=== PATIENT | male | born 1985 | race African-American/Black ===

== ENCOUNTER 2017-03-30 13:02 | Emergency (ER) | payer OTHER ==
[~2017-03-30] VITALS: Ht 190.5 cm; Wt 104.7 kg
[~2017-03-30 13:02] MED LIST: EPP3/2 INJ; FLNIN/ NAE
[2017-03-30 13:07] VITALS: TEMP 36.6; Ht 190.5 cm; Wt 104.7 kg
[2017-03-30] MEDS ORDERED: SODIUM CHLORIDE 0.9% 1000ML 1,000 ML IV STA (13:17)
[2017-03-30] MEDS ORDERED: ONDANSETRON INJ 2 MG/ML 2 ML VIAL IV STA (13:17)
[2017-03-30] MEDS ORDERED: GI COCKTAIL PO STA (13:17)
[2017-03-30] MEDS ORDERED: ALUMINUM/MAGNESIUM SUSP 30 ML UDC ONE (13:29)
[2017-03-30] MEDS ORDERED: LIDOCAINE HCL 2% VISC SOLN 20 ML UDC ONE (13:29)
[2017-03-30 13:33] LABS: BASO % 0.4 %; BASO ABS # 0.02 K/uL (0-0.2); COMPLETE YES; EOS % 2.1 %; HEMATOCRIT 44.3 % (42-52); IG% 0.4 %; LYMPH % 33.3 %; LYMPH ABS # 1.87 K/uL (1.2-3.4); MEAN CELL VOLUME 89.5 fL (80-100); MEAN CORPUSCULAR HEMOGLOBIN 30.5 pg (25-34); MEAN CORPUSCULAR HGB CONC 34.1 g/dl (32-36); MEAN PLATELET VOLUME 9.4 fL (7.4-10.4); MONO % 8.4 %; NEUT % 55.4 %; PLATELET COUNT 203 K/uL (130-400); RED BLOOD COUNT 4.95 M/uL (4.7-6.1); WHITE BLOOD COUNT 5.62 K/uL (4.8-10.8)
--- NOTE | 2017-03-30 13:38 | EMERGENCY ROOM VISIT NOTE ---
History Report prepared by Jimy: Benja Pryor Under the Supervision of: Dr. Blake Gray M.D. First contact with patient: 13:11 Chief Complaint: CARDIAC ASSESSMENT Stated Complaint: SURGERY SITE HURTS/VOMITING, CHEST PAIN Nursing Triage Summary: triage note; pt reports "i am just not feeling well i had a mass removed from my right left groin last week." pt reports since last night "i started throwing up." pt reports dizziness since this am and "it feels like my chest is on fire." History of Present Illness The patient is a 31 year old male who presents to the Emergency Room with complaints of worsening groin pain for the past week. Additionally, the patient states that he has been vomiting since last night, and she states that he is having some burning central chest pain. He states that he recently had surgery on his groin to remove a mass. The patient denies any diarrhea, and he states that he had a bowel movement yesterday. Source of History: patient Onset: a week ago Position: other (groin) Timing: worsening Associated Symptoms: + chest pain, + vomiting, No diarrhea Review of Systems See HPI for pertinent positives & negatives. A total of 10 systems reviewed and were otherwise negative. Past Medical & Surgical Medical Problems: (1) Tonsillitis Surgical Problems: (1) H/O shoulder surgery Family History Diabetes mellitus Hypertension Social History Smoking Status: Former Smoker Alcohol Use: occasionally Occupation Status: employed Current/Historical Medications Scheduled Epinephrine (Epipen 2-Dada), 1 DOSE INJ prn ud Multivitamin (Multivitamin), 1 TAB PO DAILY Omeprazole (Omeprazole), 1 TAB PO DAILY Ondasetron Odt (Zofran Odt), 4 MG SL Q6H Allergies Coded Allergies: BEE STING (Verified Allergy, Severe, ANAPHYLAXIS, 03/30/17) Physical Exam Vital Signs Date Time Temp Pulse Resp B/P (MAP) Pulse Ox O2 Delivery O2 Flow Rate FiO2 03/30/17 14:20 57 16 121/85 99 03/30/17 13:07 36.6 86 18 151/92 96 Room Air Physical Exam GENERAL: Patient is dehydrated appearing and in minimal distress. HEENT: No acute trauma, normocephalic atraumatic, mucous membranes dry, no nasal congestion, no scleral icterus. NECK: No stridor, no adenopathy, no meningismus, trachea is midline. LUNGS: No dyspnea. Clear to auscultation and equal bilaterally. No wheeze, no rhonchi. HEART: Regular rate and rhythm. No murmurs, rubs, gallops appreciated. ABDOMEN: Soft, nontender, bowel sounds positive, no masses appreciated, no peritonitis. BACK: No midline tenderness, no CVA tenderness EXTREMITIES: Normal motion all extremities, no cyanosis, no edema. NEUROLOGIC: Alert and oriented, no acute motor or sensory deficits, no focal weakness, cranial nerves grossly intact. SKIN: Well-healing left inguinal incision. No rash, no jaundice, no diaphoresis. Medical Decision & Procedures ER Provider Diagnostic Interpretation: Radiology results and stated below per my review and radiologist interpretation : ABDOMEN 2VIEW W/PA CHEST RTN HISTORY: 31 years-old Male vomiting, s/p left groin surgery COMPARISON: Abdominal ultrasound 06/22/2008 TECHNIQUE: Frontal view of the chest with erect and supine views of the abdomen FINDINGS: Cardiac mediastinal and hilar silhouettes are within normal limits. Surgical anchors are present within the left humeral head and glenoid. No pneumothorax, pleural effusion, focal airspace consolidation or overt pulmonary edema. Mild subcortical cystic changes are seen within the distal right clavicle. No pneumoperitoneum on the upright projection. Pattern is nonobstructive. No urolith identified. There is mild intervertebral disc space narrowing at L4-L5. Probable phlebolith involves the left hemipelvis. IMPRESSION: 1. No acute cardiopulmonary process. 2. Nonobstructive bowel gas pattern without pneumoperitoneum. The above report was generated using voice recognition software. It may contain grammatical, syntax or spelling errors. Electronically signed by: Venkat Osborn M.D. 03/30/2017 2:02 PM Dictated Date/Time: 03/30/2017 1:59 PM Laboratory Results 03/30/17 13:23 Red Blood Count 4.95, Mean Corpuscular Volume 89.5, Mean Corpuscular Hemoglobin 30.5, Mean Corpuscular Hemoglobin Concent 34.1, Mean Platelet Volume 9.4, Neutrophils (%) (Auto) 55.4, Lymphocytes (%) (Auto) 33.3, Monocytes (%) (Auto) 8.4, Eosinophils (%) (Auto) 2.1, Basophils (%) (Auto) 0.4, Neutrophils # (Auto) 3.12, Lymphocytes # (Auto) 1.87, Monocytes # (Auto) 0.47, Eosinophils # (Auto) 0.12, Basophils # (Auto) 0.02 03/30/17 13:23 Test 03/30/17 13:23 White Blood Count 5.62 K/uL (4.8-10.8) Red Blood Count 4.95 M/uL (4.7-6.1) Hemoglobin 15.1 g/dL (14.0-18.0) Hematocrit 44.3 % (42-52) Mean Corpuscular Volume 89.5 fL (80-100) Mean Corpuscular Hemoglobin 30.5 pg (25-34) Mean Corpuscular Hemoglobin Concent 34.1 g/dl (32-36) Platelet Count 203 K/uL (130-400) Mean Platelet Volume 9.4 fL (7.4-10.4) Neutrophils (%) (Auto) 55.4 % Lymphocytes (%) (Auto) 33.3 % Monocytes (%) (Auto) 8.4 % Eosinophils (%) (Auto) 2.1 % Basophils (%) (Auto) 0.4 % Neutrophils # (Auto) 3.12 K/uL (1.4-6.5) Lymphocytes # (Auto) 1.87 K/uL (1.2-3.4) Monocytes # (Auto) 0.47 K/uL (0.11-0.59) Eosinophils # (Auto) 0.12 K/uL (0-0.5) Basophils # (Auto) 0.02 K/uL (0-0.2) RDW Standard Deviation 45.7 fL (36.4-46.3) RDW Coefficient of Variation 14.0 % (11.5-14.5) Immature Granulocyte % (Auto) 0.4 % Immature Granulocyte # (Auto) 0.02 K/uL (0.00-0.02) Anion Gap 6.0 mmol/L (3-11) Est Creatinine Clear Calc Drug Dose 127.4 ml/min Estimated GFR () 103.1 Estimated GFR (Non- 89.0 BUN/Creatinine Ratio 16.7 (10-20) Calcium Level 9.1 mg/dl (8.5-10.1) Total Bilirubin 0.6 mg/dl (0.2-1) Direct Bilirubin 0.1 mg/dl (0-0.2) Aspartate Amino Transf (AST/SGOT) 20 U/L (15-37) Alanine Aminotransferase (ALT/SGPT) 48 U/L (12-78) Alkaline Phosphatase 70 U/L (45-117) Troponin I < 0.015 ng/ml (0-0.045) Total Protein 7.8 gm/dl (6.4-8.2) Albumin 3.7 gm/dl (3.4-5.0) Lipase 139 U/L (73-393) Laboratory results as reviewed by me. Medications Administered Medications (Trade) Dose Ordered Sig/Cheryl Route Start Time Stop Time Status Last Admin Dose Admin Sodium Chloride 1,000 ml @ 999 mls/hr Q1H1M STAT IV 03/30/17 13:17 03/30/17 14:17 DC 03/30/17 13:33 999 MLS/HR Ondansetron HCl (Zofran Inj) 4 mg NOW STAT IV 03/30/17 13:17 03/30/17 13:19 DC 03/30/17 13:33 4 MG Lidocaine HCl (Viscous Lidocaine 2% Soln) 20 ml STK-MED ONCE .ROUTE 03/30/17 13:29 03/30/17 13:30 DC 03/30/17 13:34 10 ML Al Hydroxide/Mg Hydroxide (Maalox Susp) 30 ml STK-MED ONCE .ROUTE 03/30/17 13:29 03/30/17 13:30 DC 03/30/17 13:34 30 ML ECG Indication: vomiting Rate (beats per minute): 62 Rhythm: normal sinus Findings: no acute ischemic change, no ectopy ED Course 1311: The patient was evaluated in room C4. A complete history and physical exam was performed. 1317: Zofran Inj 4mg IV, Sodium Chloride 1000 ml @ 999 mls/hr IV 1329: Maalox Sups 30ml, Viscous Lidocaine 2% Soln 10ml PO 1414: Reevaluated the patient, and he was feeling better. Discussed results and discharge instructions: He verbalized understanding and agreement. The patient is ready for discharge. Medical Decision Differential: Gastroenteritis, Food Borne, Esophageal Perforation, , Electrolyte Abnormality, Dehydration, Intraabdominal Infection, UTI/ Pyelonephritis, Bowel Obstruction, Biliary Pathology, amongst other pathology entertained. 31 yr old male with substernal CP s/p vomiting. Recent left inguinal surgery which site looks good. Exam and xrays not consistent with obstruction. No evidence ACS/Pericarditis. CXR clear. Looks well and feeling much improved. Labs look good without evidence infection. Suspect was related to vomiting though no evidence of esophageal perforation thus likely esophagitis. Stressed rest and symptomatic tx. Reviewed symptoms requiring RTED. Medication Reconcilliation Current Medication List: was personally reviewed by me Blood Pressure Screening Patient's blood pressure: Elevated blood pressure Blood pressure disposition: Elevated BP felt to be situational Impression Primary Impression: Dehydration Additional Impressions: Vomiting Substernal chest pain Scribe Attestation The scribe's documentation has been prepared under my direction and personally reviewed by me in its entirety. I confirm that the note above accurately reflects all work, treatment, procedures, and medical decision making performed by me. Departure Information Dispostion Home / Self-Care Prescriptions Omeprazole (OMEPRAZOLE) 20 Mg Tab 1 TAB PO DAILY for 30 Days, #30 TAB 3 Refills Prov: Blake Gray M.D. 03/30/17 Ondasetron Odt (ZOFRAN ODT) 4 Mg Tab 4 MG SL Q6H for Nausea, #20 TAB Prov: Blake Gray M.D. 03/30/17 Referrals Royce Culp MD (PCP) Forms IMPORTANT VISIT INFORMATION, Work Instructions Patient Instructions ED Nausea Vomiting, My [facility] Health Problem Qualifiers
[2017-03-30 13:46] LABS: ALT/SGPT 48 U/L (12-78); BLOOD UREA NITROGEN 18 mg/dl (7-18); BUN/CREATININE RATIO 16.7 (10-20); CALCIUM 9.1 mg/dl (8.5-10.1); CARBON DIOXIDE 27 mmol/L (21-32); CHLORIDE 106 mmol/L (98-107); GLUCOSE 88 mg/dl (70-99); POTASSIUM 3.8 mmol/L (3.5-5.1); SODIUM 139 mmol/L (136-145)
[2017-03-30 13:51] LABS: ALKALINE PHOSPHATASE 70 U/L (45-117); AST/SGOT 20 U/L (15-37)
[2017-03-30] MEDS ORDERED: MULT-506 PO (13:55)
--- NOTE | 2017-03-30 14:03 | DIAGNOSTIC IMAGING REPORT ---
ABDOMEN 2VIEW W/PA CHEST RTN HISTORY: 31 years-old Male vomiting, s/p left groin surgery COMPARISON: Abdominal ultrasound 06/22/2008 TECHNIQUE: Frontal view of the chest with erect and supine views of the abdomen FINDINGS: Cardiac mediastinal and hilar silhouettes are within normal limits. Surgical anchors are present within the left humeral head and glenoid. No pneumothorax, pleural effusion, focal airspace consolidation or overt pulmonary edema. Mild subcortical cystic changes are seen within the distal right clavicle. No pneumoperitoneum on the upright projection. Pattern is nonobstructive. No urolith identified. There is mild intervertebral disc space narrowing at L4-L5. Probable phlebolith involves the left hemipelvis. IMPRESSION: 1. No acute cardiopulmonary process. 2. Nonobstructive bowel gas pattern without pneumoperitoneum. The above report was generated using voice recognition software. It may contain grammatical, syntax or spelling errors. Electronically signed by: Venkat Osborn M.D. 03/30/2017 2:02 PM Dictated Date/Time: 03/30/2017 1:59 PM
[2017-03-30] MEDS ORDERED: ONDA4TAB10 SL (14:09)
[2017-03-30] MEDS ORDERED: OMEP20TA PO (14:09)
[2017-03-30 14:20] VITALS: BP 121/85; PULSE 57; O2SAT 99
== END 2017-03-30 14:21 | disposition home or self-care (01) ==
LOC: C.EDB 13:04 → C.EDC 14:21
DX: E86.0 Dehydration (principal); R11.10 Vomiting, unspecified; R07.2 Precordial pain; Z83.3 Family history of diabetes mellitus; Z82.49 Family history of ischemic heart disease and other diseases of the circulatory system; Z87.891 Personal history of nicotine dependence

== ENCOUNTER 2017-06-22 11:27 | Emergency (ER) | payer OTHER ==
[~2017-06-22] VITALS: Ht 190.5 cm; Wt 106.7 kg
[~2017-06-22 11:27] MED LIST changes: -FLNIN/ NAE; +MULT-506 PO; +OMEP20TA PO; +ONDA4TAB10 SL
[2017-06-22 11:36] VITALS: Ht 190.5 cm; Wt 106.7 kg
[2017-06-22] MEDS ORDERED: RANITIDINE HCL 150 MG TAB PO ONE (12:15)
[2017-06-22] MEDS ORDERED: PRED50TA PO (12:57)
[2017-06-22 13:06] VITALS: BP 123/80; PULSE 68; TEMP 37; O2SAT 99
--- NOTE | 2017-06-22 18:31 | EMERGENCY ROOM VISIT NOTE ---
History Report prepared by Cristopheribtara: Khari Merritt Under the Supervision of: Dr. Jesus Manuel Heath M.D. First contact with patient: 12:00 Chief Complaint: ALLERGIC REACTION Stated Complaint: BEE STING REACTION/SWOLLEN HAND, FACE History of Present Illness The patient is a 32 year old male who presents to the Emergency Room with complaints of a persistent generalized allergic reaction beginning yesterday. He has a known allergy to bees. The patient was stung by a bee yesterday on his left hand and used his EpiPen. He notes that he removed the stinger himself. He took Benadryl for his symptoms as well. The patient states that his symptoms improved significantly, but returned upon waking up today. He has not taken any additional Benadryl since. He currently complains of mild throat "tightness". Pt denies LOC, headache, fevers, chills, diaphoresis, visual changes, neck pain , chest pain, breathing difficulties, nausea, vomiting, abdominal pain, back pain, melena, hematochezia, urinary symptoms, numbness, weakness, lymphadenopathy, or other complaints. Source of History: patient Onset: Yesterday Position: other (generalized) Quality: other (allergic reaction) Timing: other (persistent) Modifying Factors (Relieving): other (Benadryl and EpiPen) Note: Additional symptoms: mild throat "tightness". Review of Systems See HPI for pertinent positives and negatives. A total of ten systems were reviewed and were otherwise negative. Past Medical & Surgical Medical Problems: (1) Tonsillitis Surgical Problems: (1) H/O shoulder surgery Family History Diabetes mellitus Hypertension Social History Smoking Status: Never Smoker Alcohol Use: occasionally Occupation Status: employed Current/Historical Medications Scheduled Epinephrine (Epipen 2-Dada), 1 DOSE INJ prn ud Multivitamin (Multivitamin), 1 TAB PO DAILY Prednisone (Prednisone), 50 MG PO DAILY Allergies Coded Allergies: BEE STING (Verified Allergy, Severe, ANAPHYLAXIS, 06/22/17) Physical Exam Vital Signs Date Time Temp Pulse Resp B/P (MAP) Pulse Ox O2 Delivery O2 Flow Rate FiO2 06/22/17 13:06 37.0 68 18 123/80 99 06/22/17 11:39 97 Room Air 06/22/17 11:36 37.1 71 18 123/80 97 Room Air Physical Exam GENERAL: Awake, alert, well-appearing, in no distress HENT: Normocephalic, atraumatic. Oropharynx unremarkable. EYES: Normal conjunctiva. Sclera non-icteric. NECK: Supple. No nuchal rigidity. FROM. No JVD. Airway is patent. No stridor. RESPIRATORY: Clear to auscultation. CARDIAC: Regular rate, normal rhythm. Extremities warm and well perfused. Pulses equal. ABDOMEN: Soft, non-distended. No tenderness to palpation. No rebound or guarding. No masses. RECTAL: Deferred. MUSCULOSKELETAL: Chest examination reveals no tenderness. The back is symmetrical on inspection without obvious abnormality. There is no CVA tenderness to palpation. No joint edema. LOWER EXTREMITIES: Calves are equal size bilaterally and non-tender. No edema. No discoloration. NEURO: Normal sensorium. No sensory or motor deficits noted. SKIN: Swelling to the palm of the left hand. Mild edema and erythema. No streaking up the arm. No foreign bodies seen. Minimal puffiness to the face. Medical Decision & Procedures Medications Administered Medications (Trade) Dose Ordered Sig/Cheryl Route Start Time Stop Time Status Last Admin Dose Admin Prednisone (PredniSONE TAB) 60 mg NOW STAT PO 06/22/17 12:05 06/22/17 12:07 DC 06/22/17 12:22 60 MG Ranitidine HCl (zANTac TAB) 150 mg NOW ONCE PO 06/22/17 12:15 06/22/17 12:16 DC 06/22/17 12:22 150 MG ED Course 1204: The patient was evaluated in room C3. A complete history and physical exam was performed. 1205: Ordered Prednisone Tab 60 mg PO. 1215: Ordered Benadryl Cap 50 mg PO, Zantac Tab 150 mg PO. 1255: I reevaluated the patient. Discussed results and discharge instructions: he verbalized understanding and agreement. The patient is ready for discharge. Medical Decision Triage Nursing notes reviewed and agree them. The patient's history was concerning for possible allergic reaction. Differential diagnosis: Etiologies such as allergic reaction, anaphylaxis, urticaria, Singleton-Bennie syndrome, toxic epidermal necrolysis, erythema multiforme, cellulitis, as well as others were entertained. Physical examination: As above. ER treatment provided: Zantac 150 mg PO Prednisone 60mg PO Benadryl was not given as the patient was planning to go back to work. On reassessment the patient felt better. Diagnostic interpretation by me: Deferred It appears the patient had an allergic reaction from a bee sting that he witnessed. He treated himself with epinephrine and Benadryl. He has some swelling but there is no sign of cellulitis. After the above treatment the patient was reassessed and was doing better. Conservative management was discussed. The patient feels comfortable. By the evaluation outlined above emergent etiologies such as airway compromise, Singleton-Bennie syndrome, toxic epidermal necrolysis, erythema multiforme, cellulitis, as well as others were deemed relatively unlikely. The patient was informed about the findings as listed above. All questions were answered and he was pleased with the treatment. Return instructions were outlined and the patient was discharged in stable condition. Outpatient prescription management: prednisone Referral: The patient was referred back to his primary care physician for follow-up in 2- 3 days for a recheck of the current condition. Medication Reconcilliation Current Medication List: was personally reviewed by me Blood Pressure Screening Patient's blood pressure: Normal blood pressure Blood pressure disposition: Did not require urgent referral Impression Primary Impression: Allergic reaction Scribe Attestation The scribe's documentation has been prepared under my direction and personally reviewed by me in its entirety. I confirm that the note above accurately reflects all work, treatment, procedures, and medical decision making performed by me. Departure Information Dispostion Home / Self-Care Prescriptions Prednisone (Prednisone) 50 Mg Tab 50 MG PO DAILY for 3 Days, #3 TAB Prov: Jesus Manuel Heath MD 06/22/17 Referrals Royce Culp MD (PCP) Forms HOME CARE DOCUMENTATION FORM, IMPORTANT VISIT INFORMATION Patient Instructions [facility] Additional Instructions ALLERGIC REACTION INSTRUCTIONS: DO NOT drive, drink alcohol, operate machinery, or perform dangerous activities today. You were given medications in the ER that can affect your ability to safely function or operate a vehicle. Epi-Pen: Use one injection as instructed for severe allergic reactions associated with shortness of breath, difficulty breathing, or throat or tongue swelling. If you use this injection call 911 or proceed immediately to the nearest Emergency Room. Prednisone 50mg: Once daily until the prescription is finished. It is best to take this earlier in the day as some patients note occasional difficulty falling asleep when taken in the late evening. Diphenhydramine(Benadryl) 25mg: use 25 to 50 mg every six hours for swelling, itching, or hives. This medication is sedating and will cause drowsiness. Avoid alcohol, operating machinery or dangerous equipment, working on ladders or roofs, DRIVING, or situations where being under the influence may be dangerous. Zantac 75: Take two pills twice a day along with Benadryl as needed for swelling , itching, or hives. Most people know this for its affect on the stomach, but it also acts similar to, but less potent than Benadryl for allergic reactions. Both the Benadryl and the Zantac are available [id number]. Continue current medications. Return to the emergency department for worsening of your rash, swelling of your face, lips, tongue, or throat, difficulty breathing, vomiting, or as needed. Follow-up with your primary care physician next week for a recheck of your current condition.
== END 2017-06-22 13:08 | disposition home or self-care (01) ==
LOC: C.EDB 11:29 → C.EDC 13:08
DX: T63.441A Toxic effect of venom of bees, accidental (unintentional), initial encounter (principal); S60.562A Insect bite (nonvenomous) of left hand, initial encounter; X58.XXXA Exposure to other specified factors, initial encounter; Z83.3 Family history of diabetes mellitus; Z82.49 Family history of ischemic heart disease and other diseases of the circulatory system

== ENCOUNTER 2017-06-27 14:21 | Emergency (ER) | payer OTHER ==
[~2017-06-27] VITALS: Ht 190.5 cm; Wt 106.8 kg
[~2017-06-27 14:21] MED LIST changes: -OMEP20TA PO; -ONDA4TAB10 SL
[2017-06-27 14:23] VITALS: TEMP 37; Ht 190.5 cm; Wt 106.8 kg
[2017-06-27] MEDS ORDERED: METHYLPREDNISOLONE 125 MG VIAL IV STA (14:54)
[2017-06-27] MEDS ORDERED: FAMOTIDINE 20MG/102 ML D5W IV STA (14:54)
--- NOTE | 2017-06-27 15:31 | DIAGNOSTIC IMAGING REPORT ---
CHEST ONE VIEW PORTABLE CLINICAL HISTORY: SOB COMPARISON STUDY: 03/30/2017 FINDINGS: The cardiac and mediastinal contours are normal. There is no evidence of focal pulmonary consolidation. There is no evidence of failure. No pleural effusions are visualized.[There are postsurgical changes in the left shoulder IMPRESSION: No active disease in the chest. Electronically signed by: Gwyn Dominguez M.D. 06/27/2017 3:30 PM Dictated Date/Time: 06/27/2017 3:29 PM
[2017-06-27 15:46] LABS: BASO % 0.2 %; BASO ABS # 0.01 K/uL (0-0.2); COMPLETE YES; EOS % 0.2 %; IG% 0.2 %; LYMPH % 19.6 %; LYMPH ABS # 0.98 K/uL (1.2-3.4); MEAN CELL VOLUME 89.1 fL (80-100); MEAN CORPUSCULAR HEMOGLOBIN 31.1 pg (25-34); MEAN CORPUSCULAR HGB CONC 34.9 g/dl (32-36); MEAN PLATELET VOLUME 9.7 fL (7.4-10.4); NEUT % 77.8 %; PLATELET COUNT 218 K/uL (130-400)
[2017-06-27] MEDS ORDERED: DIPH25CA65 PO (16:03)
[2017-06-27] MEDS ORDERED: RANI150T3 PO (16:03)
[2017-06-27 16:04] LABS: CALCIUM 8.8 mg/dl (8.5-10.1); CREATININE 0.91 mg/dl (0.60-1.40)
[2017-06-27] MEDS ORDERED: PRED20TA PO (16:05)
[2017-06-27 16:21] VITALS: BP 131/83; PULSE 61; O2SAT 99
--- NOTE | 2017-06-27 16:52 | EMERGENCY ROOM VISIT NOTE ---
History Report prepared by Scribtara: Khari Merritt Under the Supervision of: Dr. Kushal Jay D.O. First contact with patient: 14:47 Chief Complaint: ALLERGIC REACTION Stated Complaint: BEE STING-STILL HAVING A REACTION Nursing Triage Summary: Pt states he was stung be a bee last Sunday, used Epi-pen at that time, states face and left hand puffy on Sunday, came into ER then, was given a script on zantac, benadryl and prednisone. Took last prednisone 2 days ago. Today woke up with left hand red and swollen, feels itchy. History of Present Illness The patient is a 32 year old male who presents to the Emergency Room with complaints of a waxing and waning generalized allergic reaction beginning five days ago. He was stung by a bee on his left hand five days ago, and was seen in the ED four days ago for the reaction. The patient states that he has had persistent hives since this time. He also complains of throat "tightness" beginning yesterday. Pt denies headache, change in vision, fevers, chest pain, nausea, vomiting, diarrhea, and pain with urination. Source of History: patient Onset: Five days ago Position: other (generalized) Quality: other (allergic reaction) Timing: waxes/wanes Associated Symptoms: No fevers, No chest pain, No nausea, No vomiting, No abdominal pain, No diarrhea, No urinary symptoms Note: Additional symptoms: throat "tightness". Review of Systems See HPI for pertinent positives & negatives. A total of 10 systems reviewed and were otherwise negative. Past Medical & Surgical Medical Problems: (1) Tonsillitis Surgical Problems: (1) H/O shoulder surgery Family History Diabetes mellitus Hypertension Social History Smoking Status: Current Every Day Smoker Alcohol Use: occasionally Occupation Status: employed Current/Historical Medications Scheduled Diphenhydramine Hcl (Benadryl Allergy), 25 MG PO DAILY Epinephrine (Epipen 2-Dada), 1 DOSE INJ prn ud Multivitamin (Multivitamin), 1 TAB PO DAILY Prednisone (Prednisone), 1 TAB PO DAILY Ranitidine Hcl (Zantac), 150 MG PO BID Allergies Coded Allergies: BEE STING (Verified Allergy, Severe, ANAPHYLAXIS, 06/22/17) Physical Exam Vital Signs Date Time Temp Pulse Resp B/P (MAP) Pulse Ox O2 Delivery O2 Flow Rate FiO2 06/27/17 16:21 61 20 131/83 99 Room Air 06/27/17 15:27 71 18 131/83 98 Room Air 06/27/17 15:16 58 06/27/17 14:40 97 Room Air 06/27/17 14:23 37.0 79 18 171/94 97 Room Air Physical Exam GENERAL: Sitting up in bed, alert, well appearing, well nourished, no distress, non-toxic EYE EXAM: normal conjunctiva. OROPHARYNX: no exudate, no erythema, lips, buccal mucosa, and tongue normal and mucous membranes are moist NECK: supple, no nuchal rigidity, no adenopathy, non-tender. No stridor. LUNGS: Clear to auscultation. Normal chest wall mechanics HEART: no murmurs, S1 normal and S2 normal ABDOMEN: abdomen soft, non-tender, normo-active bowel sounds, no masses, no rebound or guarding. SKIN: no rashes and no bruising UPPER EXTREMITIES: Faint amount of erythema on the dorsal aspect of the MTP 2- 4. Site of sting appears to have mild erythema the hu aspect along the 2nd and 3rd MTP. Flexion and extension of shoulder, elbow, wrist and grass 5 out of 5 bilateral. Abduction of digits intact. LOWER EXTREMITIES: No pitting edema. NEURO EXAM: Normal sensorium, cranial nerves II-XII grossly intact, normal speech, no gross weakness of arms, no gross weakness of legs. Medical Decision & Procedures ER Provider Diagnostic Interpretation: Radiology results as stated below per my review and the radiologist's interpretation: CHEST ONE VIEW PORTABLE FINDINGS: The cardiac and mediastinal contours are normal. There is no evidence of focal pulmonary consolidation. There is no evidence of failure. No pleural effusions are visualized.[There are postsurgical changes in the left shoulder IMPRESSION: No active disease in the chest. Electronically signed by: Gwyn Dominguez M.D. 06/27/2017 3:30 PM Laboratory Results 06/27/17 15:30 Red Blood Count 4.60, Mean Corpuscular Volume 89.1, Mean Corpuscular Hemoglobin 31.1, Mean Corpuscular Hemoglobin Concent 34.9, Mean Platelet Volume 9.7, Neutrophils (%) (Auto) 77.8, Lymphocytes (%) (Auto) 19.6, Monocytes (%) (Auto) 2.0, Eosinophils (%) (Auto) 0.2, Basophils (%) (Auto) 0.2, Neutrophils # (Auto) 3.89, Lymphocytes # (Auto) 0.98, Monocytes # (Auto) 0.10, Eosinophils # (Auto) 0.01, Basophils # (Auto) 0.01 06/27/17 15:30 Test 06/27/17 15:30 White Blood Count 5.00 K/uL (4.8-10.8) Red Blood Count 4.60 M/uL (4.7-6.1) Hemoglobin 14.3 g/dL (14.0-18.0) Hematocrit 41.0 % (42-52) Mean Corpuscular Volume 89.1 fL (80-100) Mean Corpuscular Hemoglobin 31.1 pg (25-34) Mean Corpuscular Hemoglobin Concent 34.9 g/dl (32-36) Platelet Count 218 K/uL (130-400) Mean Platelet Volume 9.7 fL (7.4-10.4) Neutrophils (%) (Auto) 77.8 % Lymphocytes (%) (Auto) 19.6 % Monocytes (%) (Auto) 2.0 % Eosinophils (%) (Auto) 0.2 % Basophils (%) (Auto) 0.2 % Neutrophils # (Auto) 3.89 K/uL (1.4-6.5) Lymphocytes # (Auto) 0.98 K/uL (1.2-3.4) Monocytes # (Auto) 0.10 K/uL (0.11-0.59) Eosinophils # (Auto) 0.01 K/uL (0-0.5) Basophils # (Auto) 0.01 K/uL (0-0.2) RDW Standard Deviation 45.7 fL (36.4-46.3) RDW Coefficient of Variation 14.0 % (11.5-14.5) Immature Granulocyte % (Auto) 0.2 % Immature Granulocyte # (Auto) 0.01 K/uL (0.00-0.02) Anion Gap 6.0 mmol/L (3-11) Est Creatinine Clear Calc Drug Dose 154.0 ml/min Estimated GFR () 128.8 Estimated GFR (Non- 111.1 BUN/Creatinine Ratio 21.0 (10-20) Calcium Level 8.8 mg/dl (8.5-10.1) Laboratory results per my review. Medications Administered Medications (Trade) Dose Ordered Sig/Cheryl Route Start Time Stop Time Status Last Admin Dose Admin Methylprednisolone Sodium Succinate (Solu-Medrol IV) 125 mg NOW STAT IV 06/27/17 14:54 06/27/17 14:55 DC 06/27/17 15:27 125 MG Famotidine (Pepcid 20mg/100 ml) 20 mg ONE STAT IV 06/27/17 14:54 06/27/17 14:55 DC 06/27/17 15:27 20 MG ECG Indication: other (allergic reaction) Rate (beats per minute): 59 Rhythm: sinus bradycardia Findings: no ectopy, other (Normal axis. ) ED Course ED COURSE: Vital signs were reviewed and showed hypertension The patients medical record was reviewed The above diagnostic studies were performed and reviewed. ED treatments and interventions as stated above. 1449: The patient was evaluated in room B11B. A complete history and physical examination was performed. 1454: Ordered Pepcid 20 mg/100 mL 20 mg IV, Solu-Medrol 125 mg IV. 1608: Upon reevaluation, the patient is resting comfortably. I discussed my findings with the patient and he understands and agrees with the treatment plan. Based on the patients age, coexisting illnesses, exam and lab findings the decision to treat as an outpatient was made. The patient remained stable while under my care. The patient appeared well at the time of discharge. Medical Decision Differential diagnosis: Etiologies such as allergic reaction, anaphylaxis, urticaria, Singleton-Bennie syndrome, toxic epidermal necrolysis, erythema multiforme, cellulitis, as well as others were entertained. Patient is a 32-year-old male who presents to ER for localized allergic reaction associated with what feels to be tightness in his throat. He has no history diabetes, hypertension, hyperlipidemia, CAD or sudden in his family young age. He denies any chest pain or shortness of breath. EKG was unremarkable. Chest x-ray unremarkable. CBC all BMP is benign. He was given IV famotidine and steroids. He had near complete resolution of the tightness in his throat. Swelling of his hand also increased. No signs of cellulitis. Patient was updated in regards to his findings and discharged with steroids to follow-up with PCP. Discussed with Pt concerning signs and symptoms to watch out for. Pt was instructed to follow up with their PCP and discussed with the patient their option to return to the ED at anytime for persistent or worsening symptoms. The appropriate anticipatory guidance and out-patient management, including indications for return to the emergency department, were explained at length to the patient and understood. Medication Reconcilliation Current Medication List: was personally reviewed by me Blood Pressure Screening Patient's blood pressure: Elevated blood pressure Blood pressure disposition: Referred to PCP Impression Primary Impression: Allergic reaction Scribe Attestation The scribe's documentation has been prepared under my direction and personally reviewed by me in its entirety. I confirm that the note above accurately reflects all work, treatment, procedures, and medical decision making performed by me. Departure Information Dispostion Home / Self-Care Prescriptions Prednisone (Prednisone) 20 Mg Tab 1 TAB PO DAILY for 3 Days, #3 TAB Prov: Kushal Jay, 06/27/17 Referrals Royce Culp MD (PCP) Forms HOME CARE DOCUMENTATION FORM, IMPORTANT VISIT INFORMATION Patient Instructions ED Allergic Reaction Local Other, My [facility] Additional Instructions Please follow up with your primary care doctor with in the next 24 hours. Any worsening of your symptoms, please return to the ED immediately. This includes any fevers greater than 100.4, worsening pain, chest pain, shortness breath, persistent nausea, trouble swallowing, vomiting, unable to eat or drink, or any other concerning signs or symptoms from your standpoint. Problem Qualifiers Primary Impression: Allergic reaction Encounter type: initial encounter Qualified Codes: T78.40XA - Allergy, unspecified, initial encounter
== END 2017-06-27 16:23 | disposition home or self-care (01) ==
LOC: C.EDB 14:22
DX: T78.40XA Allergy, unspecified, initial encounter (principal); X58.XXXA Exposure to other specified factors, initial encounter; F17.200 Nicotine dependence, unspecified, uncomplicated; Z79.899 Other long term (current) drug therapy; Z98.890 Other specified postprocedural states; Z91.030 Bee allergy status; Z83.3 Family history of diabetes mellitus; Z82.49 Family history of ischemic heart disease and other diseases of the circulatory system